=== PATIENT | female | born 1965 | race Caucasian/White ===

== ENCOUNTER 2017-12-15 12:05 | Emergency (ER) | payer BC ==
[~2017-12-15] VITALS: Ht 167.6 cm; Wt 63.5 kg
[2017-12-15 12:05] VITALS: BP_SYST 132
--- NOTE | 2017-12-15 12:15 | NUR ---
Pt states that while attempting to break into her car, pliers slipped and sustained a laceration to digit 2 of LHA. Bleeding controlled with pressure dsg.
--- NOTE | 2017-12-15 12:15 | NUR ---
Ambulatory to bed 3
[2017-12-15] MEDS ORDERED: DIPH-TET-PERTUS Vaccine 0.5 ML VIAL (ADACEL) I.M. ONE (13:00)
--- NOTE | 2017-12-15 13:04 | NUR ---
Dr. Tang at bedside to place dermabond and steri strips to lac.
[2017-12-15 13:10] VITALS: BP_SYST 124
--- NOTE | 2017-12-15 13:10 | NUR ---
Patient given written and verbal discharge instructions and verbalizes understanding. ER MD discussed with patient the results and treatment provided. Patient in stable condition. ID arm band removed. Rx of Keflex given. Patient educated on pain management and to follow up with PMD. Pain Scale 1/10. Opportunity for questions provided and answered. Medication side effect fact sheet provided.
== END 2017-12-15 13:10 | disposition home or self-care (01) ==
LOC: SED 12:05
DX: S61.210A Laceration without foreign body of right index finger without damage to nail, initial encounter (principal); W25.XXXA Contact with sharp glass, initial encounter; Y93.89 Activity, other specified; Y92.89 Other specified places as the place of occurrence of the external cause; Y99.8 Other external cause status
CPT/HCPCS: 90715; 99284